=== PATIENT | male | born 1980 | race Caucasian/White ===

== ENCOUNTER 2023-10-26 21:14 | Emergency (ER) | payer OTHER ==
[2023-10-26] MEDS: Bacitracin Oint 1 GM U/D Packet TOP ONE (21:49)
[2023-10-26] MEDS: Lidocaine 1% 5 ML VIAL INJECT ONE (21:49)
[2023-10-26] MEDS: Diphtheria,Pertussis(Acell),Tetanus Vaccine 0.5 ML Syringe IM ONE (21:49)
[2023-10-26] MEDS ORDERED: Naloxone 0.4 MG/ML SDV IVPUSH PRN (22:06)
[2023-10-26] MEDS: HYDROmorphone 1 MG/ML Syringe IM ONE (22:11)
[2023-10-26] MEDS: Ondansetron 4 MG Tab.DIS PO ONE (22:14)
== END 2023-10-26 22:40 ==
LOC: JP.ED 21:14
DX: S66.922A Laceration of unspecified muscle, fascia and tendon at wrist and hand level, left hand, initial encounter (principal); Z23 Encounter for immunization; Z79.899 Other long term (current) drug therapy; W27.0XXA Contact with workbench tool, initial encounter
CPT/HCPCS: 73130; 90471; 90715; 96372; 99284; J1170; Q0162